=== PATIENT | female | born 1940 | race Caucasian/White ===

== ENCOUNTER 2017-01-09 16:14 | Emergency (ER) | payer MEDICARE ==
[~2017-01-09] VITALS: Ht 165.1 cm; Wt 84.0 kg
[2017-01-09 16:20] VITALS: BP 146/82; PULSE 69; RESP 16; O2SAT 99
--- NOTE | 2017-01-09 17:27 | ED.REPORT ---
HPI-Extremity Problem Lower Date of Service Jan 09, 2017 ED Provider: Dano Westfall DO Pt is a 76 year old female with a history of gout and HTN who presents to the ED complaining of right leg rash. She c/o associated bilateral swelling, itching , pain with walking, and blisters. Pt denies chest pain, SOB, and any other symptoms. She has been taking Allopurinol and she thinks that it is causing her symptoms. She started taking 100 mg of the medication, but her uric acid levels were going down, prompting an increase in dosage. For the last 2 weeks, she has been taking 200 mg of the Allopurinol. When the pt flew to [place] from [place] today, her leg started swelling with rash, itching, and blisters. This morning, her legs reduced in swelling, but the swelling increased later today.She took Benadryl to relieve the itching. She denies taking blood thinners , but she is taking blood pressure medication (Amlodipine) and a diuretic which she has been on for several years. Pt previously had chipped a bone on the back of her heel 3 months ago, but no hardware was inserted. Nursing Notes Stated Complaint: RASH AND BLISTERS ON LEGS Chief Complaint: Extremity Trauma Nursing Notes Reviewed: Yes Allergies: Coded Allergies: acetaminophen (Verified Allergy, Unknown, 01/09/17) Uncoded Allergies: IBUPROFEN (Allergy, Unknown, 01/09/17) Scheduled Potassium Chloride (Potassium Chloride) 10 Meq Capsule.er 10 MEQ PO DAILY TAKE WITH FOOD Prednisone (PredniSONE) 20 Mg Tablet 40 MG PO DAILY General Time Seen by MD: 17:27 Chief Complaint Other (Rash) Hx Obtained From: Patient Arrived By: Walk-in Onset Occurred: 3 days ago Symptom Duration: Intermittent Location: : Leg right Quality: Painful Severity: Current: Mild Severity: Maximum: Mild Similar Sx Previous: No Past Medical History Past Medical History HTN Gout Denies: Congestive heart failure, Diabetes mellitus Past Surgical History Denies Smoking History Unknown if Ever Smoker Social History Alcohol Use: Denies alcohol use Drug Use: Denies drug use Other Social History: Good social support Ambulatory Status Independent Review of Systems + vesicles on right leg Skin: Reports Itching, Reports Rash, Reports Swelling Complete sys rev & neg: except as marked. Respiratory: Denies: Non-productive cough, Shortness of breath Cardiovascular: Denies: Chest pain Physical Exam Initial Vital Signs Vital Signs (First) Date Time Temp Pulse Resp B/P Pulse Ox O2 Delivery O2 Flow Rate FiO2 01/09/17 16:20 69 16 146/82 99 Room Air Initial VS: Reviewed Head / Eyes: Atraumatic, Normocephalic, PERRL ENT: Mucous membranes moist, Conjunctiva normal, No scleral icterus Neck: Supple, Full range of motion Cardiovascular: Regular rate & rhythm, Heart sounds normal, Intact distal pulses Abdomen / GI: Soft, Non-tender Upper Extremities: Vascular intact, Neuro intact Neurologic: Alert, Oriented, Nonfocal Psychiatric: Mood/affect normal, Behavior normal Lower Extremity / Pelvis / MS: Neurologic intact, Vascular intact 1+ pitting edema, erythematous lacy rash with distinct border over medial right leg with lesser extend on medial left leg. The rash a non-blanchable. 5 fluid-filled vesicles present with the largest being over 1 cm in diameter. Ankle / Foot: Neurologic intact, Vascular intact Respiratory / Chest: Atraumatic, Breath sounds = bilat Bibasilar rales Cardiovascular: Heart rate NL, Regular rhythm, Heart sounds NL, No murmurs Interpretation & Diagnostics Lab Results Interpretation Result Diagram: 01/09/17 1832 01/09/17 1832 Test 01/09/17 18:32 White Blood Count 8.8th/mm3 (3.8-10.1) Red Blood Count 4.62mil/mm3 (3.90-5.20) Hemoglobin 13.9g/dL (12.0-15.6) Hematocrit 40.2% (35.0-46.0) Mean Corpuscular Volume 87.0fL (81-100) Mean Corpuscular Hemoglobin 30.1pg (27.0-35.0) Mean Corpuscular Hemoglobin Concent 34.6% (32.0-37.0) Red Cell Distribution Width 13.7% (12.3-15.4) Platelet Count 272bil/L (150-400) Neutrophils (%) (Auto) 54.9% (40-74) Lymphocytes (%) (Auto) 28.5% (14-46) Monocytes (%) (Auto) 10.9% (4-12) Eosinophils (%) (Auto) 4.7% (0-5) Basophils (%) (Auto) 0.7% (0-3) Erythrocyte Sedimentation Rate 13mm/hr (0-40) Sodium Level 139mEq/L (134-144) Potassium Level 3.1mEq/L (3.5-5.2) Chloride Level 98mEq/L (97-108) Carbon Dioxide Level 24mmol/L (18-29) Blood Urea Nitrogen 21mg/dL (8-27) Creatinine 0.65mg/dL (0.57-1.00) Estimat Glomerular Filtration Rate 128mL/min (>59) Glucose Level 93mg/dL (60-99) Calcium Level 9.2mg/dL (8.5-10.1) Total Bilirubin 0.3mg/dL (0.0-1.2) Aspartate Amino Transf (AST/SGOT) 23U/L (0-50) Alanine Aminotransferase (ALT/SGPT) 17U/L (0-32) Alkaline Phosphatase 94U/L (25-165) C-Reactive Protein 1.0mg/dL (0.0-0.5) Pro-B-Type Natriuretic Peptide 71.60pg/mL (0-738) Total Protein 7.5g/dL (6.4-8.4) Albumin 4.1g/dL (3.4-5.0) Hold Magdaleno Top Tube Received (Received) Re-Eval/Medical Decision Med Decision/Clinical Course 76-year-old female with a recent history of gout presents with rash over bilateral lower extremities after increasing allopurinol prescription from 100 mg to 200 mg. She is chronically on amlodipine for hypertension and has not had trouble with leg swelling previously, however today both of her legs are swollen. The rash does not appear to be infectious in nature. It is vesicular and nonblanching. Infectious and inflammatory markers returned negative. I suspect that the rash is related to allopurinol, and it is noted that about 2% of people experience a rash similar to this on this medication. She will discontinue it at this time and we will use prednisone for the rash and for gout. She is mildly hypokalemic, likely from her hydrochlorothiazide and I started a prescription of potassium chloride. She will follow up with her PCP in [place] next week Re-Evaluation/Progress : Time of Eval: 19:47 Re-Evaluation/Progress Note: Pt rechecked. Informed pt of plan for discharge. Pt understands and agrees with plan for discharge. F/U instructions and RTER warnings given. All questions addressed. Counseled Regarding: Diagnosis, Lab results, Need for follow-up, When/why to return to ED Discharge & Departure Impression: Primary Impression: Rash Additional Impressions: Allergic reaction Encounter type: initial encounter Qualified Code: T78.40XA - Allergy, unspecified, initial encounter Hypokalemia Ruled Out: Cellulitis Disposition: Home Discharge Condition All VS Reviewed: Yes Condition: Stable Patient Instructions: Acute Rash (ED) Additional Instructions: Thank you for trusting us with your care today. Your emergency room visit included an interview, physical exam, and laboratory studies. Your blood counts, complete metabolic panel, sedimentation rate and CRP returned normal. This indicates that your rash is unlikely related to an infection or inflammatory process. It is possible that the rash may be from allopurinol and I advised that you discontinue this medication. We are giving you prednisone 40 mg daily to help with your allergic reaction for 5 days. This will also help with any gout. It was found that your potassium level was low here and I recommend that you have this rechecked with your PCP. I am starting on 40 mEq of potassium chloride daily and a prescription is provided today. As both of your legs are swollen I do not believe this is a blood clot. It could be related to your amlodipine as leg swelling is a common side effect of this medication. Please follow-up with your primary care provider next week. Return to the ER for new or worsening symptoms. Referrals: OTHER,PHYSICIAN (PCP) [facility] Scribe Attestation Portions of this note were transcribed by Sharron Thornton. I, Dr. Westfall personally performed the history, physical exam and medical decision-making; I reviewed and confirmed the accuracy of the information in the transcribed note. Signed by: Dinora Lu, 01/09/17 and 19:30. copies to: [facility] Dano Westfall DO Jan 09, 2017 17:27 Sharron Hernandez Jan 09, 2017 17:59
[2017-01-09] MEDS ORDERED: predniSONE 20 mg Tablet PO ONE (17:55)
[2017-01-09 18:51] LABS: BASOPHILS % (AUTO) 0.7 % (0-3); EOSINOPHILS % (AUTO) 4.7 % (0-5); MONOCYTES % (AUTO) 10.9 % (4-12); Mean Corpuscular Hemoglobin 30.1 pg (27.0-35.0); NEUTROPHILS % (AUTO) 54.9 % (40-74); Platelet Count 272 bil/L (150-400)
[2017-01-09 18:53] LABS: ERYTHROCYTE SEDIMENTATION RATE 13 mm/hr (0-40)
[2017-01-09] MEDS ORDERED: Potassium Chloride 20 mEq SR Tablet PO ONE (20:00)
[2017-01-09] MEDS ORDERED: POTA10CA42 PO (20:00)
[2017-01-09] MEDS ORDERED: PRE20 PO (20:00)
== END 2017-01-09 20:15 | disposition home or self-care (01) ==
LOC: SED 16:14
DX: R21 Rash and other nonspecific skin eruption (principal); T78.40XA Allergy, unspecified, initial encounter; X58.XXXA Exposure to other specified factors, initial encounter; Y93.89 Activity, other specified; Y92.9 Unspecified place or not applicable; Y99.8 Other external cause status; E87.6 Hypokalemia; I10 Essential (primary) hypertension; Z88.6 Allergy status to analgesic agent